=== PATIENT | female | born 1955 | race Caucasian/White ===

== ENCOUNTER 2025-01-02 18:56 | Emergency (ER) | payer SELFPAY ==
--- OUTSIDE RECORDS SUMMARY | 2024-12-12 02:45 | XMS_ITS ---
Author Organization [facility] Address [address] [place] [address] Care Team Providers Care Reference Librarian Name Role Phone [facility] Unavailable [phone] REASON FOR VISIT F/U Lab results Encounters Encounter Location Date Provider Diagnosis [facility] [address] [place] [address] 12/12/2024 [facility] Plan Of Treatment No Information Progress Notes * Davis GARDNEReDOB: (69 yo F)Acc No.[id number]:12/12/2024 Progress Notes Patient: Amandeep STEELE Provider: Demian DENNIS :1955 A ge:69 Y S ex:Female Date:12/12/2024 Phone: Address:[address] [place] [address], [id number] Subjective: * Chief Complaints: * 1 . F/U Lab results. * Medical History: Objective: * Vitals: Assessment: Plan: * Treatment: * Billing Information: * Visit Code: * Procedure Codes: * Electronic signature of [facility] on 01/02/2025 at 08:07 PM EDT Sign off status: Pending * Provider: Demian DENNIS Date: 0 12/12/2024 Generated for Joey miles/Richie/eTransmitting on: 08:07 PM EDT
--- OUTSIDE RECORDS SUMMARY | 2025-01-02 19:07 | XMS_ITS | Patient Health Record ---
Author Organization [facility] Address [address] [place] [address] Care Team Providers Care Apparel Manufacture Instructor Name Role Phone [facility] Unavailable [phone] KAYA SIMS Unavailable [phone] Allergies Allergen (clinical drug ingredient) Drug/Non Drug Allergy documented on EMR Reaction Allergy Type Onset Date Status cephalexin Cephalexin Agitation and itching Drug Allergy Active Reason For Referral No Information Medications Medication SIG (Take, Route, Frequency, Duration) Notes Start Date End Date Status Nitrofurantoin Monohyd Macro 100 MG 1 capsule Orally Twice a day; Duration: 7 days 12/05/2024 Active Social History Tobacco Use: Social History Observation Description Date Details (start date - stop date) Never Smoker NA - NA Tobacco Control (Standard) Question Answer Notes Tobacco use: Nonsmoker Vital Signs Height 66 in 12/05/2024 Weight 135 lbs 12/05/2024 BMI 21.79 kg/m2 12/05/2024 Encounters Encounter Location Date Provider Diagnosis [facility] [address] [place] [address] 12/05/2024 KAYA SIMS Dysuria R30.0 Assessments Encounter Date Diagnosis (ICD Code) Assessment Notes Treatment Notes Treatment Clinical Notes Section Notes 12/05/2024 Dysuria (ICD-10 - R30.0) TREATMENT PLAN: MACROBID Patient presents with possible UTI symptoms without clear evidence of bloodstream infection. Macrobid (nitrofurantoin) 100mg every 12 hours for 5-7 days (avoid taking antibiotics for longer than this unless symptoms dont improve). If interested, we can send pyridum (phenazopyridine) for 2 days for urinary pain and bladder spasm relief. This will turn urine orange. Patient can also pecan picker over the counter AZO which is a similar medicine (if not allergic). Urinalysis and/or STD testing if risk factors exist. If symptoms dont improve, a urinalysis is ordered and recommended. As this is a telemedicine visit, the urine test will help confirm the diagnosis and ensure the best management of your care. Recommended to follow up in 3 days. If flank pain worsens, fevers begin and persist, bleeding begins or increases, or nausea/vomiting begin and you begin to feel more ill, go to ER. Female patients only note: Some antibiotics and other medications can reduce control effectiveness. Check with your pharmacist and consider using extra protection to prevent . If there's any chance of , take a test first, as some medications may cause harm. All medications can affect . 12/05/2024 Other Follow the treatment plan as indicated by the provider. Take any medications as prescribed. If you have any questions about your prescription, ask the pharmacist. This treatment plan is based on the information you have provided to us today. Incomplete disclosure of your medical history, past treatments, or current medications may affect the effectiveness of this treatment. Call 911 anytime you think you may need emergency care. For example, call if:You have severe trouble breathing.You have a seizure.Call your doctor now or seek immediate medical care if:You have trouble breathing.You have a fever with a stiff neck or a severe headache.You have pain or pressure in your chest or belly.You have a fever or cough that returns after getting better.You feel very sleepy, dizzy, or confused.You are not urinating.You have severe muscle pain.You have severe weakness, or you are unsteady.You have medical conditions that are getting worse.Watch closely for changes in your health, and be sure to contact your doctor if:You do not get better as expected.You are having a problem with your medicine. You participated in a [facility] request, considered an asynchronous visit where you provide your symptoms and medical history, and a treatment plan is formulated based on your submission. A treatment plan and patient education were provided based on your submission. Noncompliance with labs or recommendations may result in adverse outcomes. If symptoms persist or worsen, you should seek in-person care or call 911 immediately for further evaluation. Plan Of Treatment Pending Test Test Name Order Date URINALYSIS, COMPLETE W/REFLEX TO CULTURE (8920) 12/05/2024 HCG, TOTAL, QL (8435) 12/05/2024 Insurance Providers Payer Name Payer Address Payer Phone Subscriber Number Group Number Insured Name Patient Relationship to Insured Coverage Start Date Coverage End Date [facility] Self Pay [address] [place] [id number] [id number] Amandeep Aguilar Self - patient is the insured Medical (General) History Surgical History Surgery Date(Month/Year) 9 c-sections [phone] Hospitalization History Reason Date(Month/Year) see above
[2025-01-02 19:08] VITALS: BP 147/76; PULSE 80; RESP 16; TEMP 36.8; O2SAT 97
[2025-01-02 19:51] VITALS: BP 147/92; PULSE 85; O2SAT 99
[2025-01-02 20:00] LABS: Hematocrit 33.7 % (36-47); Hemoglobin 10.30 g/dL (11.27-16.99); Mean Corpuscular HGB Conc 30.6 g/dL (30-55); Mean Corpuscular Hemoglobin 25.6 pg (27-33); Mean Corpuscular Volume 83.6 fl (85-98); Nucleated Red Blood Cells % 0 %; Platelet Count 267 10^3/cmm (157-399); Red Blood Count 4.03 10^6/uL (3.85-5.65); White Blood Count 8.73 10^3/uL (3.29-11.43)
[2025-01-02 20:03] LABS: Glucose Urine UA Negative (Normal); Nitrate Urine Negative (Negative); Specific Gravity, Urine 1.014 (1.005-1.030)
[2025-01-02 20:10] LABS: Add Urine Microscopic? YES
[2025-01-02 20:22] LABS: Alanine Aminotransferase 9 U/L (0-33); Albumin Level 4.0 g/dL (3.5-5.2); Alkaline Phosphatase 97 U/L (35-105); Anion Gap 15.7 (5-19); Aspartate Amino Transferase 15 U/L (0-32); Blood Urea Nitrogen 13 mg/dL (8-23); Calcium 8.9 mg/dL (8.5-10.5); Carbon Dioxide 22 mmol/L (22-29); Chloride 98 mmol/L (98-107); Globulin 3.1 g/dL (1.3-4.6); Glucose 135 mg/dL (65-115); Osmolality Calculated 276 mOsm/kg (285-295); Potassium 3.7 mmol/L (3.5-5.1); Sodium 132 mmol/L (136-145); Total Protein 7.1 g/dL (6.6-8.7)
--- NOTE | 2025-01-02 21:12 | CTR_ITS ---
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 PT was treated for a UTI. PT endorses frequency. PT is a poor historian and does not answer direct questions at this time. orginally ordered as a/p with. PT refused the contrast and Dr changed. TECHNIQUE: Imaging protocol: Computed tomography of the abdomen and pelvis without contrast. Radiation optimization: All CT scans at this facility use at least one of these dose optimization techniques: automated exposure control; mA and/or kV adjustment per patient size (includes targeted exams where dose is matched to clinical indication); or iterative reconstruction. COMPARISON: No relevant prior studies available. RADIATION DOSE METRICS: Total DLP (mGy-cm): 385.03 FINDINGS: Diaphragm: A small hiatal hernia is present. Liver: Normal. No mass. Gallbladder and biliary ducts: Normal. No calcified stones. No ductal dilation. Pancreas: Normal. No ductal dilation. Spleen: Normal. No splenomegaly. Adrenal glands: Normal. No mass. Kidneys and ureters: A 13 mm obstructive stone is seen in the distal right ureter. Severe right hydronephrosis is present. Moderate right hydroureter is present. Simple left renal cysts are present (Bosniak 1). No follow-up required. Stomach and bowel: Colonic diverticulosis without evidence of acute diverticulitis is present. The large and small bowel are otherwise unremarkable without obstruction or wall thickening. Appendix: No evidence of appendicitis. Intraperitoneal space: Unremarkable. No free air. No significant fluid collection. Vasculature: Unremarkable. No abdominal aortic aneurysm. Lymph nodes: Left para-aortic/retroperitoneal lymphadenopathy measuring up to 1.2 cm, indeterminate in the presence of the urinary bladder mass. Urinary bladder: A multilobulated mass measuring up to 5.3 x 4.5 cm indeterminate mass is seen within the urinary bladder, limited in evaluation without intravenous contrast. Findings could represent hematoma versus malignancy. Reproductive: A fibroid uterus is present. Bones/joints: Degenerative joint and disc disease is seen in the imaged spine. Soft tissues: The soft tissues are within normal limits. CT/CT kidney stone [id number] IMPRESSION: 1. Obstructing 13 mm distal right ureteral stone. 2. Severe right hydronephrosis. 3. Moderate right hydroureter. 4. Limited characterization of urinary bladder mass. Differential includes hematoma or bladder malignancy. Recommend CT urography for further characterization. Urology consult may be warranted. Direct visualization could be considered. 5. Left para-aortic/retroperitoneal lymphadenopathy measuring up to 1.2 cm, indeterminate in the presence of the urinary bladder mass. 6. Colonic diverticulosis without evidence of acute diverticulitis. COMMENTS: Consistent with the [employer]'s Incidental Findings Committee white paper (J Am Genaro Radiol 2018): Any incidental renal lesion less than 1 cm or classified as too small to characterize, or any incidental cystic renal lesion characterized as simple-appearing, is likely benign. No follow-up imaging is recommended for these lesions per consensus recommendations based on imaging criteria.
--- NOTE | 2025-01-02 22:08 | ED_ITS ---
HPI - Female Genitourinary 2 General: Chief complaint: Urogenital-Female Stated complaint: Possible hemorrhage from urinary tract Time Seen by Provider: 01/02/25 19:49 History of Present Illness: 69yo F w/cc of hematuria. Patient state s that she has noted blood in her urine since November but this has been on and off. Patient states that she was seen by telehealth and has completed 2 different courses of antibiotics. Patient states that for the past couple weeks she was fine until a couple of days ago she noted what appeared to be a clot from her urethra with tingling and discomfort. Patient has not felt ill and has not had fever, chills, malaise, chest pain, shortness of breath, abdominal pain, nausea, vomiting, flank pain, dysuria, pelvic pain, vaginal bleeding. She denies constipation or blood in the bowel. Patient states she is very healthy, does not take any medications and states she has not seen doctor for 20 years. Patient states she has not had any night sweats, fatigue or unintended weight loss. Related Data Previous Rx's ?Medication ?Instructions ?Recorded tamsulosin 0.4 mg capsule (Flomax) 0.4 mg PO DAILY 14 days #14 caps 01/03/25 Allergies Allergy/AdvReac Type Severity Reaction Status Date / Time No Known Allergies Allergy Verified 01/02/25 19:17 Physical Exam 2 Narrative: EXAM NARRATIVE: Vital signs were reviewed. Patient is alert and oriented. Patient is breathing comfortably, no increased WOB or accessory muscle use. SpO2 is above 95% on RA. Patient has clear lungs b/l, no rhonchi, wheezing or crackles. No hypotension or tachycardia. Abdomen is soft, nondistended and nontender. No CVA tenderness with percussion of her flanks. Patient is moving all extremities, no deformity or gross injury. Patient is ambulatory. Course 2 Vital Signs: Vital signs: Vital Signs Temperature 98.3 F 01/02/25 19:08 Pulse Rate 85 01/02/25 19:51 Respiratory Rate 16 01/02/25 19:08 Blood Pressure 147/92 01/02/25 19:51 Pulse Oximetry 99 01/02/25 19:51 Oxygen Delivery Me thod Room Air 01/02/25 19:51 MDM - Female Medical Decision Making 61-year-old female presenting with a chief complaint of intermittent and painless hematuria since November. Differential diagnose includes, is limited to, urinary tract infection, pyelonephritis, kidney stone, renal cell carcinoma or other malignancy of the urogenital tract, bladder cancer, other. On exam, patient is hemodynamically stable and nontoxic-appearing. Patient has not had any infectious symptoms or systemic symptoms such as fever, malaise, chills, nausea, vomiting. She is very comfortable and does not appear to be in any pain. She was evaluate CBC, BMP, UA and CT scan of the abdomen and pelvis. Patient refused a contrasted study. Patient has a normal white blood cell count. Patient is anemic but this does not require transfusion and I do not have a comparison to prior. Patient has adequate kidney function and a normal anion gap. She does not have any actionable electrolyte abnormalities. UA demonstrates hematuria but is negative for nitrate and bacteria. There is 5-10 white blood cells and 2+ leuk esterase though sample is somewhat contaminated. In light of no fever, reported infectious symptoms, no definitive CVA tenderness, at this time I have low suspicion for complicating infection of the urinary tract. Her CT imaging shows IMPRESSION: 1. Obstructing 13 mm distal right ureteral stone. 2. Severe right hydronephrosis. 3. Moderate right hydroureter. 4. Limited characterization of urinary bladder mass. Differential includes hematoma or bladder malignancy. Recommend CT urography for further characterization. Urology consult may be warranted. Direct visualization could be considered. 5. Left para-aortic/retroperitoneal lymphadenopathy measuring up to 1.2 cm, indeterminate in the presence of the urinary bladder mass. 6. Colonic diverticulosis without evidence of acute diverticulitis. Patient was counseled on these findings. I advised her she will need to see a urologist on an outpatient basis soon as possible. Patient was provided a copy of the CT scan results and expressed understanding that this could be cancer when referring to her bladder mass. I advised her that she will not be able to pass the kidney stone on her own due to its size, most likely. She expressed understanding of her condition. We discussed return precautions, she was given a prescription for Flomax and referred to urology on outpatient basis. Questions were answered prior to discharge. Lab Data 01/02/25 19:51 01/02/25 19:51 Radiology Impressions Abdomen/Pelvis CT 01/02/25 21:12 IMPRESSION: 1. Obstructing 13 mm distal right ureteral stone. 2. Severe right hydronephrosis. 3. Moderate right hydroureter. 4. Limited characterization of urinary bladder mass. Differential includes hematoma or bladder malignancy. Recommend CT urography for further characterization. Urology consult may be warranted. Direct visualization could be considered. 5. Left para-aortic/retroperitoneal lymphadenopathy measuring up to 1.2 cm, indeterminate in the presence of the urinary bladder mass. 6. Colonic diverticulosis without evidence of acute diverticulitis. COMMENTS: Consistent with the [employer]'s Incidental Findings Committee white paper (J Am Genaro Radiol 2018): Any incidental renal lesion less than 1 cm or classified as too small to characterize, or any incidental cystic renal lesion characterized as simple-appearing, is likely benign. No follow-up imaging is recommended for these lesions per consensus recommendations based on imaging criteria. Laboratory Results WBC 8.73 10^3/uL (3.29-11.43) 01/02/25 19:51 RBC 4.03 10^6/uL (3.85-5.65) 01/02/25 19:51 Hgb 10.30 g/dL (11.27-16.99) L 01/02/25 19:51 Hct 33.7 % (36-47) L 01/02/25 19:51 MCV 83.6 fl (85-98) L 01/02/25 19:51 MCH 25.6 pg (27-33) L 01/02/25 19:51 MCHC 30.6 g/dL (30-55) 01/02/25 19:51 RDW 13.8 % (12.1-15.1) 01/02/25 19:51 Plt Count 267 10^3/cmm (157-399) 01/02/25 19:51 MPV 9.6 fL (7.4-10.4) 01/02/25 19:51 Neut % (Auto) 79.2 % 01/02/25 19:51 Lymph % (Auto) 15.7 % 01/02/25 19:51 Kendall % (Auto) 4.0 % 01/02/25 19:51 Eos % (Auto) 0.5 % 01/02/25 19:51 Baso % (Auto) 0.3 % 01/02/25 19:51 Neut # (Auto) 6.91 10^3/uL (1.8-7.7) 01/02/25 19:51 Lymph # (Auto) 1.4 10^3/uL (0.8-4.8) 01/02/25 19:51 Kendall # (Auto) 0.4 10^3/uL (0.2-0.9) 01/02/25 19:51 Eos # (Auto) 0.0 10^3/uL (0.0-0.8) 01/02/25 19:51 Baso # (Auto) 0.0 10^3/uL (0.0-0.1) 01/02/25 19:51 Nucleated RBC % (auto) 0 % 01/02/25 19:51 Nucleated RBCs # 0.0 /100WBC 01/02/25 19:51 Sodium 132 mmol/L (136-145) L 01/02/25 19:51 Potassium 3.7 mmol/L (3.5-5.1) 01/02/25 19:51 Chloride 98 mmol/L (98-107) 01/02/25 19:51 Carbon Dioxide 22 mmol/L (22-29) 01/02/25 19:51 Anion Gap 15.7 (5-19) 01/02/25 19:51 BUN 13 mg/dL (8-23) 01/02/25 19:51 Creatinine 0.9 mg/dL (0.5-0.9) 01/02/25 19:51 GFR Calculation 62.3 mL/min (90-130) L 01/02/25 19:51 Glucose 135 mg/dL (65-115) H 01/02/25 19:51 Calculated Osmolality 276 mOsm/kg (285-295) L 01/02/25 19:51 Calcium 8.9 mg/dL (8.5-10.5) 01/02/25 19:51 Total Bilirubin 0.3 mg/dL (0.15-1.2) 01/02/25 19:51 AST 15 U/L (0-32) 01/02/25 19:51 ALT 9 U/L (0-33) 01/02/25 19:51 Alkaline Phosphatase 97 U/L (35-105) 01/02/25 19:51 Total Protein 7.1 g/dL (6.6-8.7) 01/02/25 19:51 Albumin 4.0 g/dL (3.5-5.2) 01/02/25 19:51 Globulin 3.1 g/dL (1.3-4.6) 01/02/25 19:51 Urine Color Red (Yellow) A 01/02/25 19:54 Urine Appearance Turbid (CLEAR) A 01/02/25 19:54 Urine pH 6.0 (5-7) 01/02/25 19:54 Ur Specific [place] 1.014 (1.005-1.030) 01/02/25 19:54 Urine Protein 2+ (Negative) A 01/02/25 19:54 Urine Glucose (UA) Negative (Normal) 01/02/25 19: Urine Ketones Negative (Negative) 01/02/25: Urine Blood 3+ (Negative) A 01/02/25: Urine Nitrate Negative (Negative) 01/02/25 19: Urine Bilirubin Negative (Negative) 01/02/25 19: Urine Urobilinogen 1.0 mg/dL (Negative) 01/02/25 19: Ur Leukocyte Esterase 2+ (Negative) A 01/02/25 19:54 Urine RBC 21-50 /hpf (0-2) H 01/02/25 19:54 Urine WBC 5-10 /hpf (0-5) H 01/02/25 19:54 Ur Squamous Epith Cells 0-4 /hpf (0-5) H 01/02/25 19:54 Amorphous Sediment Not Reportable 01/02/25 19:54 Urine Bacteria Trace /hpf (NONE) 01/02/25 19:54 Urine Mucus None /hpf 01/02/25 19:54 All radiology interpretation(s) finalized by discharge Discharge Plan Discharge Patient Disposition: Home Clinical Impression: Kidney stone on right side, Mass of bladder Condition: Stable Prescriptions: New tamsulosin [Flomax] 0.4 mg capsule 0.4 mg PO DAILY 14 Days Qty: 14 0RF Discharge Orders: Discharge ED (Routine); Ordered 01/03/25 Ordered By: Arianne Devine Patient Instructions: Kidney Stones, Opioid Safety, Pain Management, Patient Portal & Carrie Instructions Activity Restrictions/Additional Instructions: Please continue to monitor your condition closely at home. Take Ibuprofen 400mg and Tylenol 500-1000mg every six hours for pain and inflammation. Please take Flomax to assist with passing stone. Please understand however that the stone is too large and will likely not pass on its own. You need to see a urologist as soon as possible to help with the stone. In addition, you may need further diagnostic procedures to ensure suspected bladder mass is not cancerous. If your condition worsens or additional concerns arise, please return promptly to the emergency department for reassessment. Specifically, please monitor for any fever, chills, malaise, nausea, vomiting, chills or worsening pain. Follow up with a urologist as soon as possible. Print Language: Urdu Coding Level of Care Code ED Sports Medicine Trainer for Bertin Esteves
--- NOTE | 2025-01-02 22:54 | PC.NURSE ---
PT KINDLY DECLINING VITALS AT THIS TIME, PT EDUCATED ON IMPORTANCE OF VITAL MONITORING BUT PT JUST WANTS TO REST
== END 2025-01-03 00:46 | disposition home or self-care (01) ==
PROVIDERS: Student in an Organized Health Care Education/Training Program; Emergency Provider Emergency Medicine
DX: N20.0 Calculus of kidney (principal); N32.89 Other specified disorders of bladder
CPT/HCPCS: 36415; 74176; 80053; 81001; 85025; 87086; 99284